=== PATIENT | female | born 1940 | race Caucasian/White ===

== ENCOUNTER 2016-09-16 14:50 | Inpatient (IN) | payer OTHER ==
[2015-10-13 12:15] VITALS: Ht 160 cm; Wt 70.3 kg
[~2016-09-16] VITALS: Ht 160 cm; Wt 70.3 kg
[2016-09-16 14:50] VITALS: BP 143/62; PULSE 89; RESP 16; TEMP 97; O2SAT 98
[~2016-09-16 14:50] MED LIST: ALBU8.5H8 INH; ATOR40TA68 PO; CILO100T21 PO; CYCL-365 PO; CYM30 PO; DICL50TA7 PO; DULO20CA PO; ESOM20CA33 PO; HYDR-1189 PO; LEVE500T53 PO; LISI10TA5 PO; LORA1TAB PO; METF-510 PO; METO25TA3 PO; METO50TA7 PO; NITR0.4T6 SL; TICA90TA PO; TRAM200T4 PO
--- NOTE | 2016-09-16 15:05 | NUR ---
Unable to locate patient for triage.
--- NOTE | 2016-09-16 15:15 | NUR ---
Unable to locate patient for triage.
[2016-09-16] MEDS ORDERED: NACL 0.9% 1,000 ML IV SCH (15:34)
[2016-09-16 15:43] LABS: BASOPHILS # (AUTO) 0.1 K/uL (0.0-0.2); BASOPHILS % (AUTO) 1.5 % (0.0-2.0); EOSINOPHILS # (AUTO) 0.1 K/uL (0.0-0.4); EOSINOPHILS % (AUTO) 1.6 % (0.0-4.0); HEMATOCRIT 31.9 % (36-48); HEMOGLOBIN 10.3 g/dL (12.0-16.0); LYMPHOCYTES # (AUTO) 0.7 K/uL (1.0-5.5); LYMPHOCYTES % (AUTO) 9.6 % (20.5-51.5); MEAN CORPUSCULAR HEMOGLOBIN 24 pg (27-31); MEAN CORPUSCULAR HGB CONC 32 % (32-36); MEAN CORPUSCULAR VOLUME 75 fL (79.0-98.0); MONOCYTES # (AUTO) 0.6 K/uL (0.0-1.0); MONOCYTES % (AUTO) 9.3 % (1.7-9.3); NEUTROPHILS # (AUTO) 5.4 K/uL (1.8-7.7); PLATELET COUNT (AUTO) 275 K/uL (130-430); RED BLOOD CELL COUNT(AUTO) 4.26 MIL/uL (4.2-6.2); RED CELL DISTRIBUTION WIDTH 17.1 % (9.0-15.0); WHITE BLOOD COUNT (AUTO) 6.9 K/uL (4.8-10.8)
[2016-09-16] MEDS ORDERED: ACETAMINOPHEN 325 MG TABLET PO ONE (15:45)
[2016-09-16] MEDS ORDERED: VANCOMYCIN HCL 1,000 MG in D5W 250 ML IV ONE (15:45)
[2016-09-16 15:47] LABS: PROTHROMBIN TIME 11.2 SECS (9.5-12.5)
[2016-09-16 15:56] LABS: ANION GAP 10 (5-15); CALCIUM 9.7 mg/dL (8.4-11.0); CHLORIDE 102 mmol/L (98-107); CREATININE 1.31 mg/dL (0.55-1.30); GLUCOSE 121 mg/dL (70-99); POTASSIUM 3.9 mmol/L (3.5-5.1); SODIUM SERUM 135 mmol/L (136-145); UREA NITROGEN, BLOOD 16 mg/dL (8-21)
[2016-09-16 16:00] LABS: ALANINE AMINOTRANSFERASE 38 U/L (12-78); ALBUMIN 4.4 g/dL (3.4-4.8); ASPARTATE AMINOTRANSFERASE 48 U/L (10-37); TOTAL BILIRUBIN 0.3 mg/dL (0.0-1.0); TOTAL PROTEIN, SERUM 8.3 g/dL (6.4-8.3)
--- NOTE | 2016-09-16 16:00 | NUR ---
Pt brought by , A&Ox4, pt c/o sorethroat and changes in her voice starting couple days ago, skin pink and warm, cap refill<3, respirations even and unlabored, ambulatory, VSS, no active bleeding noted.
--- NOTE | 2016-09-16 16:00 | NUR ---
Pt on room 4 placed by triage nurse
[2016-09-16 16:44] LABS: BILIRUBIN,URINE NEGATIVE (NEGATIVE); BLOOD, URINE NEGATIVE (NEGATIVE); CLARITY/URINE HAZY (CLEAR); COLOR,URINE YELLOW (YELLOW); GLUCOSE,URINE NEGATIVE (NEGATIVE); KETONES,URINE NEGATIVE (NEGATIVE); LEUKOCYTE ESTERASE ,URINE NEGATIVE (NEGATIVE); NITRITE, URINE NEGATIVE (NEGATIVE); PROTEIN URINE NEGATIVE (NEGATIVE); UROBILINOGEN,URINE 0.2 (0.2-1.0)
--- NOTE | 2016-09-16 17:30 | NUR ---
Pt on stable condition, denies pain at this time, VS WNL, follows commands, respirations even and unlabored.
[2016-09-16] MEDS ORDERED: CLOPIDOGREL BISULFATE 75 MG TABLET PO ONE (18:15)
[2016-09-16] MEDS ORDERED: NITROGLYCERIN 0.4 MG TAB.SUBL SL SCH (18:45)
[2016-09-16] MEDS ORDERED: TRAMADOL HCL 50 MG PO PRN (18:45)
[2016-09-16] MEDS ORDERED: INSULIN REGULAR, HUMAN 100 UNITS/ML, 10 ML VIAL (novoLIN R) SUBCUT PRN (19:00)
[2016-09-16 19:15] VITALS: BP 101/63; PULSE 69; RESP 20; TEMP 97.7; O2SAT 100
[2016-09-16] MEDS ORDERED: DEXTROSE 50%-WATER 50 ML DISP.SYRIN IVP PRN ×2 (19:15)
[2016-09-16] MEDS ORDERED: GLUCOSE 15 GM GEL (in 37.5 GM TUBE) PO PRN ×2 (19:15)
--- NOTE | 2016-09-16 19:15 | NUR ---
ADMISSION: The patient, [place], 76 y/o, F admitted by REGINALDO ESCOBAR MD, was given written information regarding hospital policies, unit procedures and contact persons. Addendum: 09/16/16 at 204 by Tj Lyle RN CORRETION :WRONG INTERVENTION
--- NOTE | 2016-09-16 19:15 | NUR ---
ADMISSION NOTES; -Pt is a/x3, episode of forgetfulness. Vital signs 97.7, 20, 69, 101/63, q8bry=892% r/a. Inpt Telemetry Dx ALoc. Pt is able to ambulate from a gurney to bed slow but weak gaits with mini assistance. Saline nguyen of left hand #22, patent, no s/s any infiltration noted after flushed w/ NS,drsg cdi. Skin intact. BS present, abdomen soft & distended. Shadi pedis pulses present and no edema noted. Lung sounds shadi anterior and posterior upper clear lobes,but shadi posterior lower lobes diminished. Fiance is at bedside with pt. Discussed poc, all safety measures, pain mgmt,or if experiencing any chest pain,sob,or any acute distress to use call light to inform nurse, pt verbalized understanding. Seizure precaution in place. Fall precaution in place. Bed alarm in place, side rails x3, bed low position. Place near Nurses's station. Call light w/in reach. Continue to monitor pt.
--- NOTE | 2016-09-16 19:41 | NUR ---
Patient will be admitted to care of Dr Sanchez. Admitted to Tele unit. Will go to room 135 . Belongings list completed. Summary report printed. Report given to Elaine .
--- NOTE | 2016-09-16 19:42 | NUR ---
PAGED DR. ESCOBAR REGARDING POSITIVE A INFLUENZA. NOW, WAITING FOR MD TO RETURN CALLBACK
--- NOTE | 2016-09-16 19:43 | NUR ---
CONSULTATION PAGED REASON FOR CONSULTATION:ALOC WAS CONSULT CALLED?Y PERSON WHO WAS NOTIFIED:GRISELDA CONSULTING PHYSICIAN:LORENA PORTILLO [employer] PROFESSIONAL SPECIALTY:NEURO HUMAN RES[employer] PROFESSIONAL PHONE NUMBER:[phone]
--- NOTE | 2016-09-16 19:49 | NUR ---
DR. ESCOBAR CALLED BACK AND NOTIFIED REGARDING POSITIVE A INFLUENZA -TAMIFLU 75MG PO BID AND BREATHING TXMT
[2016-09-16] MEDS ORDERED: IPRATROPIUM/ALBUTEROL SULFATE 3 ML AMPUL.NEB INH PRN (20:00)
[2016-09-16] MEDS: OSELTAMIVIR PHOSPHATE 75 MG CAPSULE PO SCH (20:40)
[2016-09-16] MEDS: levETIRAcetam 500 MG TABLET PO SCH (20:40)
[2016-09-16 20:43] VITALS: BP 101/63; PULSE 69; RESP 20; TEMP 97.7; O2SAT 100
[2016-09-16] MEDS: IPRATROPIUM/ALBUTEROL SULFATE 3 ML AMPUL.NEB INH SCH (21:24)
[2016-09-16 21:25] VITALS: BP 101/63; PULSE 77
--- NOTE | 2016-09-16 21:40 | NUR ---
BATHROOM WITH ASSISTANCE -Pt just walked out of bed without using call light to use bathroom. Immediately attending to pt and assisting to bathroom and returned to bed safely. Encouraged to use call light for assistance whenever needs to use bathroom, pt verbalized understanding. Fall precaution in place. Bed alarm in place, side rails x3. Call light w/in reach. Continue to monitor pt.
[2016-09-16] MEDS ORDERED: ATORVASTATIN 20 MG TABLET PO ONE (21:45)
[2016-09-16] MEDS ORDERED: GABAPENTIN 100 MG CAPSULE PO ONE (21:45)
[2016-09-16] MEDS ORDERED: COMMUNICATION ORDER XX ONE (21:45)
--- NOTE | 2016-09-16 22:23 | NUR ---
ROUNDS; -Gave Neurontin and Atorvastatin po, pt tolerated well. Bed alarmed, low position, side rails x3. Place near Nurses' station. Fall precaution in place. All safety measures in place. Call light w/in reach. Continue to monitor pt.
--- NOTE | 2016-09-16 23:31 | NUR ---
ROUNDS; -Pt is resting. No s/s any acute distress noted. Bed alarmed, low position, side rails x3. Place near Nurses' station. Fall precaution in place. All safety measures in place. Call light w/in reach. Continue to monitor pt.
[2016-09-17 00:32] VITALS: BP 158/53; PULSE 85; RESP 18; TEMP 98.7; O2SAT 100
[2016-09-17] MEDS: IPRATROPIUM/ALBUTEROL SULFATE 3 ML AMPUL.NEB INH SCH ×4 (01:51→20:42)
[2016-09-17 04:17] VITALS: BP 133/58; PULSE 91; RESP 19; TEMP 98.1; O2SAT 100
--- NOTE | 2016-09-17 05:35 | NUR ---
ROUNDS; Blood sugar is 100,no ssi coverage. -Pt is resting. Pt denies pain,sob,or any acute distress . Bed alarmed, low position, side rails x3. Place near Nurses' station. Fall precaution in place. All safety measures in place. Call light w/in reach. Continue to monitor pt.
--- NOTE | 2016-09-17 06:44 | NUR ---
CLOSING NOTES; -Pt is resting. No s/s any pain,sob,or any acute distress. Saline nguyen of left hand #22, patent, drsg cdi. Seizure precaution in place. Fall precaution in place. Bed alarm in place, side rails x3, bed low position. Place near Nurses's station. Call light w/in reach.
[2016-09-17 08:00] VITALS: BP 126/50; PULSE 72; RESP 18; TEMP 99.6; O2SAT 98
--- NOTE | 2016-09-17 08:00 | NUR ---
initial notes rec patient awake alert with ivl on the r forearm intact. no infiltration noted. no periods of confusion noted. ambulates with min assists to the br. bed in low position and side rails up and locked. call light within reached and knows when to call for assistance. fall/safety measures instructed. will continue to monitor patient.
[2016-09-17 08:41] LABS: BASOPHILS # (AUTO) 0.1 K/uL (0.0-0.2); BASOPHILS % (AUTO) 1.1 % (0.0-2.0); EOSINOPHILS % (AUTO) 0.5 % (0.0-4.0); HEMATOCRIT 29.9 % (36-48); HEMOGLOBIN 9.6 g/dL (12.0-16.0); LYMPHOCYTES # (AUTO) 1.9 K/uL (1.0-5.5); LYMPHOCYTES % (AUTO) 33.7 % (20.5-51.5); MEAN CORPUSCULAR HEMOGLOBIN 24 pg (27-31); MEAN CORPUSCULAR HGB CONC 32 % (32-36); MEAN CORPUSCULAR VOLUME 73 fL (79.0-98.0); MONOCYTES # (AUTO) 0.8 K/uL (0.0-1.0); MONOCYTES % (AUTO) 13.8 % (1.7-9.3); NEUTROPHILS # (AUTO) 2.8 K/uL (1.8-7.7); NEUTROPHILS % (AUTO) 50.9 % (40.0-70.0); PLATELET COUNT (AUTO) 249 K/uL (130-430); RED BLOOD CELL COUNT(AUTO) 4.09 MIL/uL (4.2-6.2); WHITE BLOOD COUNT (AUTO) 5.6 K/uL (4.8-10.8)
--- NOTE | 2016-09-17 08:42 | NUR ---
Consults Order received for two consults. The first consult with Dr Huff was called last shift, but has been called again. Spoke with Lenka. Second consult is for Dr Colón for influenza. Spoke with Sarah at the exchange. Will follow up as needed.
[2016-09-17 09:30] LABS: ANION GAP 13 (5-15); CALCIUM 9.1 mg/dL (8.4-11.0); CHLORIDE 106 mmol/L (98-107); CREATININE 1.33 mg/dL (0.55-1.30); GLUCOSE 129 mg/dL (70-99); POTASSIUM 3.4 mmol/L (3.5-5.1); SODIUM SERUM 141 mmol/L (136-145); UREA NITROGEN, BLOOD 14 mg/dL (8-21)
[2016-09-17 09:34] LABS: ALANINE AMINOTRANSFERASE 36 U/L (12-78); ALBUMIN 3.8 g/dL (3.4-4.8); ASPARTATE AMINOTRANSFERASE 42 U/L (10-37); TOTAL BILIRUBIN 0.2 mg/dL (0.0-1.0); TOTAL PROTEIN, SERUM 7.5 g/dL (6.4-8.3)
[2016-09-17] MEDS: levETIRAcetam 500 MG TABLET PO SCH ×2 (10:38→20:56)
[2016-09-17] MEDS: FLUTICASONE PROPIONATE 50 mCg/SPRAY 16 GM NS SCH ×2 (10:38→20:55)
[2016-09-17] MEDS: OSELTAMIVIR PHOSPHATE 75 MG CAPSULE PO SCH ×2 (10:39→20:56)
[2016-09-17] MEDS: METOPROLOL SUCCINATE 50 MG TAB.SR.24H (TOPROL XL) PO SCH (10:39)
[2016-09-17] MEDS: DULoxetine HCL 30 MG CAPSULE.DR (CYMBALTA) PO SCH (10:39)
--- NOTE | 2016-09-17 12:00 | NUR ---
rounds pt eating lunch and no hypo hyperglycemic reaction noted. no caute distress noted.
[2016-09-17 12:01] VITALS: BP 127/54; PULSE 55; RESP 17; TEMP 98.2; O2SAT 97
[2016-09-17] MEDS: ACETAMINOPHEN 325 MG TABLET PO PRN ×2 (13:10→20:10)
--- NOTE | 2016-09-17 14:00 | NUR ---
rounds seen by dr mckeon and with orders.no sob noted.
[2016-09-17 14:01] VITALS: BP 129/81; PULSE 56; RESP 16; TEMP 97.6; O2SAT 97
[2016-09-17] MEDS ORDERED: AZITHROMYCIN 250 MG TABLET PO ONE (14:30)
[2016-09-17] MEDS ORDERED: POTASSIUM CHLORIDE 20 MEQ TAB.PRT.SR PO ONE (14:30)
--- NOTE | 2016-09-17 18:40 | NUR ---
closing notes seen by dr penny updated re patient's condition. no sob noted. stable, needs attended. call light within reached.
[2016-09-17 19:40] VITALS: BP 147/54; PULSE 60; RESP 16; TEMP 98.2; O2SAT 97
--- NOTE | 2016-09-17 19:40 | NUR ---
notes received the pt from the day nurse.pt a/a/ox4 c/o headache and sore throat will medicate the pt .iv infusing well into rt forearm,no redness or swelling noted.in isolation for positive influenza a. seizure precautions in progress.no seizure activity noted.monitor in place and shows sr.o2 via nc in place at 2l/min.no dyspnea noted.call light within reach,safety measures in progress.continue to monitor.
--- NOTE | 2016-09-17 20:10 | NUR ---
NOTES PT MEDICATED FOR A C/O A HEADACHE 10/15 PT TALKING ON THE PHONE.NO ACUTE DISTRESS NOTED.WILL CONTINUE TO MONITOR.
[2016-09-17] MEDS: GABAPENTIN 100 MG CAPSULE PO SCH (20:56)
[2016-09-17] MEDS: ATORVASTATIN 20 MG TABLET PO SCH (20:56)
--- NOTE | 2016-09-17 21:17 | NUR ---
NOTES MED.NEB.TREATMENT IN PROGRESS.ACCUCHECK WAS 143 ,NO INSULIN NEEDED PER S/S.CONTINUE TO MONITOR,
--- NOTE | 2016-09-17 23:38 | NUR ---
NOTES PT SLEEPING,CALL LIGHT WITHIN REACH,CONTINUE TO MONITOR.
[2016-09-18 00:36] VITALS: BP 129/67; PULSE 64; RESP 17; TEMP 98.4; O2SAT 96
[2016-09-18] MEDS: IPRATROPIUM/ALBUTEROL SULFATE 3 ML AMPUL.NEB INH SCH ×4 (01:00→20:17)
--- NOTE | 2016-09-18 01:30 | NUR ---
NOTES PT SLEEPING,CALL LIGHT WITHIN REACH.CONTINUE TO MONITOR.
--- NOTE | 2016-09-18 03:23 | NUR ---
NOTES PT REMAINS ASLEEP.CALL LIGHT WITHIN REACH.CONTINUE TO MONITOR.
[2016-09-18 04:30] VITALS: BP 132/70; PULSE 66; RESP 17; TEMP 98; O2SAT 95
--- NOTE | 2016-09-18 05:14 | NUR ---
NOTES PT SLEEPING,CALL LIGHT WITHIN REACH.CONTINUE TO MONITOR.
--- NOTE | 2016-09-18 06:22 | NUR ---
CLOSING NOTES ACCUCHECK WAS 104.PT WITH NO COMPLAINTS.WILL ENDORSE THE CARE OF THE PT TO THE DAY NURSE.
--- NOTE | 2016-09-18 06:36 | NUR ---
NOTES PT IS NOW MED.SURG.MONITOR REMOVED ORDERED.
--- NOTE | 2016-09-18 08:00 | NUR ---
AM ROUNDS Pt A/Ox3, denies pain or sob at this time...HL to LH flushes well...Pt with NC on bed, Pt removes it from time to time, and puts it back on when needed...Pt states that her cough has improved...Isolation precautions in place...Call light/phone w/in reach...will cont to monitor
[2016-09-18 09:18] VITALS: BP 136/66; PULSE 74; RESP 22; TEMP 98; O2SAT 95
[2016-09-18] MEDS: METOPROLOL SUCCINATE 50 MG TAB.SR.24H (TOPROL XL) PO SCH (09:23)
[2016-09-18] MEDS: DULoxetine HCL 30 MG CAPSULE.DR (CYMBALTA) PO SCH (09:23)
[2016-09-18] MEDS: AZITHROMYCIN 250 MG TABLET PO SCH (09:24)
[2016-09-18] MEDS: ACETAMINOPHEN 325 MG TABLET PO PRN (09:24)
[2016-09-18] MEDS: levETIRAcetam 500 MG TABLET PO SCH ×2 (09:24→21:18)
[2016-09-18] MEDS: OSELTAMIVIR PHOSPHATE 75 MG CAPSULE PO SCH ×2 (09:24→21:18)
[2016-09-18] MEDS: FLUTICASONE PROPIONATE 50 mCg/SPRAY 16 GM NS SCH ×2 (09:26→21:18)
[2016-09-18] MEDS ORDERED: BENZOCAINE/MENTHOL 1 EACH LOZENGE MM PRN (10:00)
--- NOTE | 2016-09-18 11:00 | NUR ---
ROUNDS PT STABLE...NO CHANGES...COMFORTABLE...WILL CONT TO MONITOR
--- NOTE | 2016-09-18 12:49 | NUR ---
ROUNDS PT STABLE...SITTING UP AT EDGE OF BED, EATING LUNCH...WILL CONT TO MONITOR
--- NOTE | 2016-09-18 12:53 | NUR ---
DR ESCOBAR AT BEDSIDE
[2016-09-18 12:54] LABS: BASOPHILS % (AUTO) 1.1 % (0.0-2.0); EOSINOPHILS # (AUTO) 0.1 K/uL (0.0-0.4); EOSINOPHILS % (AUTO) 2.2 % (0.0-4.0); HEMATOCRIT 32.1 % (36-48); HEMOGLOBIN 10.3 g/dL (12.0-16.0); LYMPHOCYTES # (AUTO) 1.4 K/uL (1.0-5.5); LYMPHOCYTES % (AUTO) 33.3 % (20.5-51.5); MEAN CORPUSCULAR HEMOGLOBIN 24 pg (27-31); MEAN CORPUSCULAR HGB CONC 32 % (32-36); MONOCYTES # (AUTO) 0.5 K/uL (0.0-1.0); MONOCYTES % (AUTO) 11.5 % (1.7-9.3); NEUTROPHILS # (AUTO) 2.3 K/uL (1.8-7.7); NEUTROPHILS % (AUTO) 51.9 % (40.0-70.0); PLATELET COUNT (AUTO) 276 K/uL (130-430); RED BLOOD CELL COUNT(AUTO) 4.21 MIL/uL (4.2-6.2); RED CELL DISTRIBUTION WIDTH 17.3 % (9.0-15.0); WHITE BLOOD COUNT (AUTO) 4.3 K/uL (4.8-10.8)
[2016-09-18 12:55] LABS: MEAN CORPUSCULAR VOLUME 76 fL (79.0-98.0)
[2016-09-18 12:56] VITALS: BP 127/66; PULSE 59; RESP 16; TEMP 97.9; O2SAT 96
[2016-09-18 13:06] LABS: IRON (SERUM) 17 mcg/dL (37-145); TOTAL IRON BIND. CAPACITY 329 ug/dL (250-450)
--- NOTE | 2016-09-18 15:25 | NUR ---
PAGED DR ESCOBAR REGARDING BLOOD RESULTS DR ESCOBAR CALLED BACK...CONNECTION WAS VERY BAD, UNABLE TO UNDERSTAND DR ESCOBAR'S INSTRUCTIONS, CALL DROPPED. AWAITING FOR DR ESCOBAR TO CALL BACK. IF NO CALL BACK DOCTOR WILL BE REPAGED
[2016-09-18 16:00] VITALS: BP 133/67; PULSE 67; RESP 17; TEMP 97.9; O2SAT 98
--- NOTE | 2016-09-18 16:14 | NUR ---
DR ESCOBAR PAGED TWICE FOR ORDER CLARIFICATION
--- NOTE | 2016-09-18 16:22 | NUR ---
PER DR ESCOBAR.PT WILL BE DISCHARGED TOMORROW BOTH SON AND PT AWARE
[2016-09-18] MEDS: traMADol HCL HCL 50 MG TABLET (ULTRAM) PO PRN (16:26)
--- NOTE | 2016-09-18 17:53 | NUR ---
PT STATES THAT SHE ONLY TAKE 500mg A DAY. WANTED TO ONLY TAKE 500mg NOW
[2016-09-18 19:30] VITALS: BP 149/62; PULSE 57; RESP 16; TEMP 97.7; O2SAT 94
--- NOTE | 2016-09-18 19:30 | NUR ---
notes received the pt from the day nurse.pt a/a/ox4 family at the bedside.pt with no c/o sob or pain.pt was moved to b bed because the tv did not work last noc,respiratory therapist was called to move the o2 to the bed.call light within reach,safety measures in progress.will continue to monitor.
[2016-09-18] MEDS: GABAPENTIN 100 MG CAPSULE PO SCH (21:19)
[2016-09-18] MEDS: ATORVASTATIN 20 MG TABLET PO SCH (21:19)
[2016-09-18] MEDS: BRILINTA 90 MG PO SCH (21:19)
--- NOTE | 2016-09-18 21:44 | NUR ---
notes pt watching tv with no complaints.accucheck was 96,no insulin needed.continue to monitor.
--- NOTE | 2016-09-18 23:23 | NUR ---
notes pt resting with eyes closed.continue to monitor.
[2016-09-19] VITALS: BP 146/64; PULSE 66; RESP 16; TEMP 98.3; O2SAT 99
[2016-09-19] MEDS: IPRATROPIUM/ALBUTEROL SULFATE 3 ML AMPUL.NEB INH SCH ×2 (01:00→08:05)
--- NOTE | 2016-09-19 01:23 | NUR ---
notes pt sleeping,call light within reach.continue to monitor.
--- NOTE | 2016-09-19 03:53 | NUR ---
notes pt sleeping,no distress noted .continue to monitor.
[2016-09-19 04:00] VITALS: BP 127/50; PULSE 56; RESP 16; TEMP 98; O2SAT 97
--- NOTE | 2016-09-19 05:19 | NUR ---
NOTES PT SLEEPING.NO DYSPNEA NOTED.CONTINUE TO MONITOR.
--- NOTE | 2016-09-19 06:30 | NUR ---
CLOSING NOTES ACCUCHECK WAS 106 NO INSULIN NEEDED PER S/S.WILL ENDORSE THE PT TO THE DAY NURSE.
[2016-09-19 06:59] LABS: ALANINE AMINOTRANSFERASE 30 U/L (12-78); ALBUMIN 3.6 g/dL (3.4-4.8); ANION GAP 11 (5-15); ASPARTATE AMINOTRANSFERASE 29 U/L (10-37); CALCIUM 9.2 mg/dL (8.4-11.0); CHLORIDE 104 mmol/L (98-107); CREATININE 1.18 mg/dL (0.55-1.30); GLUCOSE 102 mg/dL (70-99); POTASSIUM 4.4 mmol/L (3.5-5.1); SODIUM SERUM 140 mmol/L (136-145); TOTAL BILIRUBIN 0.2 mg/dL (0.0-1.0); TOTAL PROTEIN, SERUM 7.3 g/dL (6.4-8.3); UREA NITROGEN, BLOOD 15 mg/dL (8-21)
--- NOTE | 2016-09-19 07:50 | NUR ---
INITIAL ROUNDS Received pt AAOx4, no s/s resp distress, no c/o pain or discomfort. Pt in Droplet isolation for Influenza A+. Plan of care for the day reviewed with pt-pt verbalized her understanding-happy to go home today. Pain management, skin and safety discussed-teach back done. Contact phone number explained, call light within reach.
[2016-09-19 08:05] VITALS: BP 131/64; PULSE 57
[2016-09-19 08:41] VITALS: BP 131/64; PULSE 57; RESP 16; TEMP 98; O2SAT 98
[2016-09-19] MEDS ORDERED: OSEL75CA PO (09:21)
[2016-09-19] MEDS ORDERED: ALBMDI INH (09:23)
[2016-09-19] MEDS: levETIRAcetam 500 MG TABLET PO SCH (09:24)
[2016-09-19] MEDS: AZITHROMYCIN 250 MG TABLET PO SCH (09:24)
[2016-09-19] MEDS: DULoxetine HCL 30 MG CAPSULE.DR (CYMBALTA) PO SCH (09:24)
[2016-09-19] MEDS: traMADol HCL HCL 50 MG TABLET (ULTRAM) PO PRN (09:24)
[2016-09-19] MEDS: OSELTAMIVIR PHOSPHATE 75 MG CAPSULE PO SCH (09:25)
[2016-09-19] MEDS ORDERED: FERR-57 PO (09:25)
[2016-09-19] MEDS: METOPROLOL SUCCINATE 50 MG TAB.SR.24H (TOPROL XL) PO SCH (09:26)
[2016-09-19] MEDS: BRILINTA 90 MG PO SCH (09:30)
--- NOTE | 2016-09-19 09:30 | NUR ---
ROUNDS/ Pt sitting up in bed visiting with her , no c/o SOB, c/o toothache-given pain medication as ordered. Pt seen by Dr. Sanchez and kaylee to discharge pt home. Need met. Call light within reach.
[2016-09-19] MEDS: FLUTICASONE PROPIONATE 50 mCg/SPRAY 16 GM NS SCH (09:32)
[2016-09-19 09:35] VITALS: BP 131/64; PULSE 57; RESP 16; TEMP 98; O2SAT 98
--- NOTE | 2016-09-19 10:45 | NUR ---
PATIENT DISCHARGED HOME Patient given medication reconciliation form and D/C instructions. Exit Care eplained & provided. Patient verbalized her understanding. MD discussed with patient the results and treatment provided. Ambulatory with steady gait for discharge to home. Patient in stable condition, ID band removed. IV catheter removed, intact and dressing applied, no active bleeding. Rx given. Patient educated on pain management. All belongings sent with patient. Patient left floor via wheelchair to private vehicle in no distress.
--- NOTE | 2016-09-21 16:02 | NUR ---
Discharge Follow Up Phone Call [employer] phoned patient, , and spoke with patient's fianceJimenez. Jimenez stated that patient is felling fine. She filled her prescriptions and is taking them as directed. She has a follow up appointment with her PCP, Dr Sneed, on 09/23 and the GI on 10/11. Patient is taking her iron pills as directed with, at this time, no ill effects. Discussed watching for constipation and diet choices and staying hydrated. Patient is managing her DM as directed. No further follow up calls needed.
== END 2016-09-19 10:45 | disposition home or self-care (01) | DRG 193 ==
LOC: SED 14:50 → STU 18:56 → SMU 09-18 07:29
DX: J09.X2 Influenza due to identified novel influenza A virus with other respiratory manifestations (principal); G93.41 Metabolic encephalopathy; J98.11 Atelectasis; I25.10 Atherosclerotic heart disease of native coronary artery without angina pectoris; E11.9 Type 2 diabetes mellitus without complications; F32.9 Major depressive disorder, single episode, unspecified; E78.5 Hyperlipidemia, unspecified; E78.00 Pure hypercholesterolemia, unspecified; G40.909 Epilepsy, unspecified, not intractable, without status epilepticus; I11.9 Hypertensive heart disease without heart failure; I25.2 Old myocardial infarction; Z95.5 Presence of coronary angioplasty implant and graft; Z88.6 Allergy status to analgesic agent; Z88.0 Allergy status to penicillin; Z79.899 Other long term (current) drug therapy
CPT/HCPCS: 36415; 70360-TC; 70450-TC; 71010; 80053; 81003; 82140-TC; 82962; 83540-TC; 83550-TC; 83605; 85025; 85610-TC; 85730-TC; 86710; 87040-TC; 87086; 94640; 94760; 96365; 99285; G9035; J1815; J3370; J7030; J7060; Q0144

== ENCOUNTER 2017-11-19 16:34 | Emergency (ER) | payer OTHER ==
[~2017-11-19] VITALS: Ht 157.5 cm; Wt 77.1 kg
[~2017-11-19 16:34] MED LIST changes: +ALBMDI INH; -DICL50TA7 PO; +FERR-57 PO; -METO25TA3 PO; +OSEL75CA PO
[2017-11-19 16:39] VITALS: BP_SYST 145
== END 2017-11-19 17:40 | disposition left against medical advice (07) ==
LOC: SED 16:34
DX: R42 Dizziness and giddiness (principal); Z53.21 Procedure and treatment not carried out due to patient leaving prior to being seen by health care provider

== ENCOUNTER 2019-08-05 23:47 | Emergency (ER) | payer OTHER ==
[~2019-08-05] VITALS: Ht 157.5 cm; Wt 76.2 kg
[~2019-08-05 23:47] MED LIST changes: -CYCL-365 PO; +CYCL10TA9 PO; +NITR0.4T47 SL; -NITR0.4T6 SL
--- NOTE | 2019-08-06 | NUR ---
Placed in room 05 . Placed on manager monitoring, blood pressure machine and pulse oximeter. To gown for exam. Side rails up.
[2019-08-06 00:02] VITALS: BP_SYST 194
--- NOTE | 2019-08-06 00:02 | NUR ---
Pt presents to ER with c/o dizziness. Pt states dizziness began approximately at 2 pm yesterday. Pt states dizziness persisted all day and became worse around 11 pm. Pt states she struggled to get down hallway to family and called for help. Pt denies LOC and fall. Pt states she is nauseated with palpitations and SOB. Pt states head pain. Pt describes pain as pressure and rates pain 5/10. Will continue to monitor.
--- NOTE | 2019-08-06 00:03 | NUR ---
ER Dr. Nash at bedside examining patient.
--- NOTE | 2019-08-06 00:11 | NUR ---
Pt moved to bed 3
[2019-08-06] MEDS ORDERED: DIPHENHYDRAMINE INJ 50 MG/ML VIAL IVP ONE (00:15)
[2019-08-06] MEDS ORDERED: ONDANSETRON HCL 4 MG/2 ML VIAL IVP ONE (00:15)
[2019-08-06 01:01] LABS: BASOPHILS % (AUTO) 0.5 % (0.0-2.0); EOSINOPHILS # (AUTO) 0.3 K/uL (0.0-0.4); EOSINOPHILS % (AUTO) 4.6 % (0.0-4.0); HEMATOCRIT 30.8 % (36-48); LYMPHOCYTES # (AUTO) 3.8 K/uL (1.0-5.5); LYMPHOCYTES % (AUTO) 50.4 % (20.5-51.5); MEAN CORPUSCULAR HEMOGLOBIN 26 pg (27-31); MEAN CORPUSCULAR HGB CONC 32 % (32-36); MEAN CORPUSCULAR VOLUME 80 fL (79.0-98.0); MONOCYTES # (AUTO) 0.7 K/uL (0.0-1.0); MONOCYTES % (AUTO) 9.4 % (1.7-9.3); NEUTROPHILS # (AUTO) 2.6 K/uL (1.8-7.7); NEUTROPHILS % (AUTO) 35.1 % (40.0-70.0); PLATELET COUNT (AUTO) 237 K/uL (130-430); RED BLOOD CELL COUNT(AUTO) 3.85 MIL/uL (4.2-6.2); RED CELL DISTRIBUTION WIDTH 14.7 % (9.0-15.0); WHITE BLOOD COUNT (AUTO) 7.5 K/uL (4.8-10.8)
--- NOTE | 2019-08-06 01:04 | NUR ---
Pt off floor to radiology via gurney in stable condition.
[2019-08-06 01:07] LABS: ANION GAP 13 (5-15); CALCIUM 8.7 mg/dL (8.4-11.0); CHLORIDE 100 mmol/L (98-107); CREATININE 1.31 mg/dL (0.55-1.30); GLUCOSE 107 mg/dL (70-99); POTASSIUM 3.7 mmol/L (3.5-5.1); SODIUM SERUM 134 mmol/L (136-145); UREA NITROGEN, BLOOD 20 mg/dL (8-21)
--- NOTE | 2019-08-06 01:08 | NUR ---
Pt returned from radiology in stable condition. Will continue to monitor.
--- NOTE | 2019-08-06 01:17 | NUR ---
Radiology at bedside.
[2019-08-06 01:19] LABS: ALANINE AMINOTRANSFERASE 25 U/L (12-78); ALBUMIN 3.4 g/dL (3.4-4.8); ASPARTATE AMINOTRANSFERASE 28 U/L (10-37); TOTAL BILIRUBIN 0.4 mg/dL (0.0-1.0)
--- NOTE | 2019-08-06 01:39 | NUR ---
Assisted pt to bedside commode. Collected urine sample. Urine sent to lab.
[2019-08-06 01:50] LABS: BILIRUBIN,URINE NEGATIVE (NEGATIVE); BLOOD, URINE NEGATIVE (NEGATIVE); COLOR,URINE YELLOW (YELLOW); GLUCOSE,URINE NEGATIVE (NEGATIVE); KETONES,URINE NEGATIVE (NEGATIVE); LEUKOCYTE ESTERASE ,URINE 2+ (NEGATIVE); NITRITE, URINE NEGATIVE (NEGATIVE); PROTEIN URINE NEGATIVE (NEGATIVE); UROBILINOGEN,URINE 0.2 (0.2-1.0)
[2019-08-06 01:51] LABS: CLARITY/URINE SLIGHTLY HAZY (CLEAR)
[2019-08-06 02:09] LABS: BACTERIA,URINE MODERATE /HPF (None Seen); RBC,URINE 0-3 /HPF (0-3)
[2019-08-06] MEDS ORDERED: ESCI20TA PO (02:29)
[2019-08-06] MEDS ORDERED: LOSA50TA3 PO (02:30)
[2019-08-06] MEDS ORDERED: ASPI-1153 PO (02:32)
[2019-08-06] MEDS ORDERED: GLU500 PO (02:32)
[2019-08-06] MEDS ORDERED: MV-M1TAB32 PO (02:33)
--- NOTE | 2019-08-06 02:34 | NUR ---
Patient resting quietly with niece at bedside. No acute distress noted. Vital signs within normal range. Will continue to monitor.
[2019-08-06] MEDS ORDERED: NITROFURANTOIN MONOHYD/M-CRYST 100 MG CAPSULE PO ONE (02:45)
--- NOTE | 2019-08-06 03:10 | NUR ---
Upon discharge, pt blood pressure 200/83. MD Nash notified. Orders received Lisinopril 10mg PO.
[2019-08-06] MEDS ORDERED: LISINOPRIL 10 MG TABLET (PRINIVIL) PO ONE (03:15)
--- NOTE | 2019-08-06 03:16 | NUR ---
Pt medicated. Pt tolerated well. Will continue to monitor.
[2019-08-06 03:36] VITALS: BP_SYST 187
--- NOTE | 2019-08-06 03:36 | NUR ---
Patient given written and verbal discharge instructions and verbalizes understanding. ER MD Nash discussed with patient the results and treatment provided. Patient in stable condition. ID arm band removed. IV catheter removed intact and dressing applied, no active bleeding. Rx of macrobid and antivert given. Patient educated on pain management and to follow up with PMD. Pain Scale 0/10. Opportunity for questions provided and answered. Medication side effect fact sheet provided.
== END 2019-08-06 03:36 | disposition home or self-care (01) ==
LOC: SED 23:47
DX: N39.0 Urinary tract infection, site not specified (principal); D64.9 Anemia, unspecified; R42 Dizziness and giddiness; E11.9 Type 2 diabetes mellitus without complications; I10 Essential (primary) hypertension; Z88.0 Allergy status to penicillin; Z88.6 Allergy status to analgesic agent; Z79.82 Long term (current) use of aspirin; Z79.899 Other long term (current) drug therapy
CPT/HCPCS: 36415; 70450; 71045; 80053; 81000; 83880; 84484; 85025; 87086; 87186; 93005; 96374; 96375; 99284; J1200; J2405